=== PATIENT | female | born 1960 | race Caucasian/White ===

== ENCOUNTER 2021-05-26 01:01 | Inpatient (IN) | payer BC ==
[2021-05-26] MEDS: Dextrose 5%-Lactated Ringers 1,000 ML IV SCH ×3 (05:44→22:28)
[2021-05-26] MEDS ORDERED: fentaNYL/Normal Saline 600 MCG/30 ML PCA Vial IV PRN (06:00)
[2021-05-26] MEDS ORDERED: Naloxone 0.4 MG/ML SDV IV PRN (06:00)
[2021-05-26] MEDS ORDERED: Ondansetron 4 MG/2 ML SDV IVPUSH ONE (06:49)
--- NOTE | 2021-05-26 08:23 | PCM.HP.2 ---
H&P History of Present Illness - General Date of Service: 05/26/21 Admit Problem/Dx: Admission Diagnosis/Problem Admission Diagnosis/Problem Small bowel obstruction Source of Information: Patient History Limitations: Reports: No Limitations - History of Present Illness Initial Comments - Free Text/Narative: Marcela states she has had abdominal pain on and off since 04/16/2021 until yesterday. Reports pain as continuous, burning and in mid abdomen. CT shows a Small bowel intussusception near an area of postoperative change in the left abdomen and fatty enlarged liver. 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 Reports pain on a pain scale of 8/10. Denies any nausea, vomiting, diarrhea or constipation. Last BM was yesterday and she states she had 4 normal BMs. History of RNY Gastric Bypass Surgery in 2004 at [place], [place] [employer] Weight was about 300 lbs. Does not remember her lowest weight. Per report she is taking all of her vitamins and cannot remember what her prescription medications are. Transferred from [place], [place] via air ambulance Abdomen Pain Score (Numeric/FACES): 6 - Related Data Allergies/Adverse Reactions: Allergies Allergy/AdvReac Type Severity Reaction Status Date / Time hydrocodone Allergy Mild Other Verified 05/26/21 05:20 morphine Allergy Mild Other Verified 05/26/21 05:20 quetiapine [From Seroquel] Allergy Mild Other Verified 05/26/21 05:20 sulfa antibiotics Allergy Other Uncoded 05/26/21 05:20 Past Medical History HEENT History: Reports: Sinusitis Cardiovascular History: Reports: Heart Murmur Gastrointestinal History: Reports: Bowel Obstruction, Diverticulosis, GERD Genitourinary History: Reports: Other (See Below) Other Genitourinary History: Tilted bladder [employer] History: Reports: Psychiatric History: Reports: Anxiety, Depression, Panic Attack, Suicidal Ideation Other Psychiatric History: Switched meds and those made pt suisidal roughly 1 month ago, once discontinued no issues. - Infectious Disease History Infectious Disease History: Reports: MRSA - Past Surgical History HEENT Surgical History: Reports: None Cardiovascular Surgical History: Reports: None Respiratory Surgical History: Reports: None GI Surgical History: Reports: Bariatric Procedure, Hernia, Abdominal Neurological Surgical History: Reports: None Social & Family History - Family History Family Medical History: No Pertinent Family History - Tobacco Use Tobacco Use Status *Q: Current Every Day Tobacco User Years of Tobacco use: 40 Packs/Tins Daily: 1 Second Hand Smoke Exposure: Yes - Caffeine Use Caffeine Use: Reports: Coffee Caffeine Use Comment: occasionally - Recreational Drug Use Recreational Drug Use: Yes Drug Use in Last 12 Months: Yes Recreational Drug Type: Reports: Marijuana/Hashish Other Recreational Drug Type: Smoked medical marijuana almost daily until 2 weeks ago then has only had recreational marijuana twice since then. Recreational Drug Use Frequency: Daily H&P Review of Systems - Review of Systems: Review Of Systems: See Below General: Reports: No Symptoms HEENT: Reports: No Symptoms Pulmonary: Reports: No Symptoms Cardiovascular: Reports: No Symptoms Gastrointestinal: Reports: Abdominal Pain, Constipation, Diarrhea, Decreased Appetite Genitourinary: Reports: No Symptoms Musculoskeletal: Reports: No Symptoms Skin: Reports: No Symptoms Neurological: Reports: No Symptoms Hematologic/Lymphatic: Reports: No Symptoms Immunologic: Reports: No Symptoms Exam - Exam Exam: See Below - Vital Signs Vital Signs: Last Vital Signs Temp 98 F 05/26/21 06:58 Pulse 54 L 05/26/21 06:58 Resp 16 05/26/21 06:58 BP 158/76 H 05/26/21 06:58 Pulse Ox 95 05/26/21 06:58 Weight: 142 lb 12.8 oz - Exam Quality Assessment: DVT Prophylaxis General: Alert, Oriented, Cooperative HEENT: PERRLA, Conjunctiva Clear Neck: Supple, Trachea Midline Lungs: Clear to Auscultation, Normal Respiratory Effort Cardiovascular: Regular Rate, Regular Rhythm GI/Abdominal Exam: Normal Bowel Sounds, Soft, Tender (in all 4 quadrants) (Female) Exam: Deferred Rectal (Female) Exam: Deferred Back Exam: Normal Inspection, Full Range of Motion Extremities: Normal Inspection, Normal Range of Motion, No Pedal Edema Skin: Warm, Dry, Intact Neurological: Cranial Nerves Intact, Reflexes Equal Bilateral Neuro Extensive - Mental Status: Alert, Oriented x3, Normal Mood/Affect Neuro Extensive - Motor, Sensory, Reflexes: CN II-XII Intact, Normal Gait, Normal Reflexes Psychiatric: Alert, Normal Affect, Normal Mood - Patient Data Lab Results Last 24 hrs: Laboratory Results - last 24 hr 05/26/21 05/26/21 05/26/21 Range/Units 05:22 06:46 06:46 WBC 8.0 (4.5-11.0) K/uL RBC 4.42 (3.30-5.50) M/uL Hgb 13.6 (12.0-15.0) g/dL Hct 41.3 (36.0-48.0) % MCV 93 (80-98) fL MCH 31 (27-31) pg MCHC 33 (32-36) % Plt Count 298 (150-400) K/uL Sodium 143 (140-148) mmol/L Potassium 3.5 L (3.6-5.2) mmol/L Chloride 106 (100-108) mmol/L Carbon Dioxide 28 (21-32) mmol/L Anion Gap 12.5 (5.0-14.0) mmol/L BUN 16 (7-18) mg/dL Creatinine 0.8 (0.6-1.0) mg/dL Est Cr Clr Drug Dosing 69.58 mL/min Estimated GFR (MDRD) > 60 (>60) Glucose 103 (74-106) mg/dL Calcium 8.6 (8.5-10.1) mg/dL Phosphorus 3.3 (2.5-4.9) mg/dL Magnesium 1.9 (1.8-2.4) mg/dL Ferritin (8-388) ng/ml Total Bilirubin 0.3 (0.2-1.0) mg/dL AST 15 (15-37) U/L ALT 23 (12-78) U/L Alkaline Phosphatase 52 (46-116) U/L Total Protein 6.0 L (6.4-8.2) g/dL Albumin 3.4 (3.4-5.0) g/dL Globulin 2.6 (2.3-3.5) g/dL Albumin/Globulin Ratio 1.3 (1.2-2.2) Vitamin B12 (193-986) pg/ml 05/26/21 05/26/21 Range/Units 06:46 06:46 WBC (4.5-11.0) K/uL RBC (3.30-5.50) M/uL Hgb (12.0-15.0) g/dL Hct (36.0-48.0) % MCV (80-98) fL MCH (27-31) pg MCHC (32-36) % Plt Count (150-400) K/uL Sodium (140-148) mmol/L Potassium (3.6-5.2) mmol/L Chloride (100-108) mmol/L Carbon Dioxide (21-32) mmol/L Anion Gap (5.0-14.0) mmol/L BUN (7-18) mg/dL Creatinine (0.6-1.0) mg/dL Est Cr Clr Drug Dosing mL/min Estimated GFR (MDRD) (>60) Glucose (74-106) mg/dL Calcium (8.5-10.1) mg/dL Phosphorus (2.5-4.9) mg/dL Magnesium (1.8-2.4) mg/dL Ferritin 234 (8-388) ng/ml Total Bilirubin (0.2-1.0) mg/dL AST (15-37) U/L ALT (12-78) U/L Alkaline Phosphatase (46-116) U/L Total Protein (6.4-8.2) g/dL Albumin (3.4-5.0) g/dL Globulin (2.3-3.5) g/dL Albumin/Globulin Ratio (1.2-2.2) Vitamin B12 797 (193-986) pg/ml Result Diagrams: 05/26/21 05:22 05/26/21 06:46 Sepsis Event Note - Evaluation Sepsis Screening Result: No Definite Risk - Focused Exam Vital Signs: Vital Signs Temp Pulse Resp BP Pulse Ox 05/26/21 06:58 98 F 54 L 16 158/76 H 95 05/26/21 03:27 97.6 F 59 L 17 130/66 98 - Problem List (1) Intussusception intestine SNOMED Code(s): 26389707 ICD Code: K56.1 - INTUSSUSCEPTION Status: Acute Current Visit: Yes Problem List Initiated/Reviewed/Updated: Yes Orders Last 24hrs: Active Orders 24 hr Category Date Time Status Admission Diagnosis [ADT] Routine ADT 05/26/21 03:14 Ordered Admission Status [Patient Status] [ADT] Routine ADT 05/26/21 03:14 Active Communication Order [RC] ASDIRECTED Care 05/26/21 07:47 Active Vital Signs [RC] Q4H Care 05/26/21 05:22 Active NPO [Nothing Per Oral Diet] [DIET] Diet 05/26/21 Breakfast Active UGI w Small Bowel wo Air [CR] Routine Exams 05/26/21 07:42 Ordered COPPER, SERUM OR PLASMA Stat Lab 05/26/21 06:46 Received FOLIC ACID [CHEM] Routine Lab 05/26/21 06:46 Received VITAMIN A, SERUM Stat Lab 05/26/21 06:46 Received VITAMIN B1 (THIAMINE), BLOOD Stat Lab 05/26/21 06:46 Received ZINC, PLASMA OR SERUM Stat Lab 05/26/21 06:46 Received Dextrose 5%-Lactated Ringers 1,000 ml Med 05/26/21 05:30 Active IV ASDIRECTED Naloxone [Narcan] Med 05/26/21 06:00 Active 0.1 mg IV ASDIRECTED PRN fentaNYL/Normal Saline [fentaNYL in NS 20 MCG/ML 30 ML Med 05/26/21 06:00 Active ROLL FORMING MACHINE SET UP MECHANIC] 0 mcg IV ASDIRECTED PRN SCD [Sequential Compression Device] [OM.PC] Routine Oth 05/26/21 05:52 Ordered Medication Orders Fentanyl Citrate (Fentanyl/Normal Saline 600 Mcg/30 Ml Candy Starch Mold Printer Vial) 0 mcg IV ASDIRECTED PRN; Protocol PRN Reason: Pain Dextrose/Lactated Ringer's (Dextrose 5%-Lactated Ringers) 1,000 mls @ 125 mls/hr IV ASDIRECTED CLYDE Last Admin: 05/26/21 05:44 Dose: 125 mls/hr Documented by: [id number] Naloxone HCl (Naloxone 0.4 Mg/Ml Sdv) 0.1 mg IV ASDIRECTED PRN PRN Reason: decreased respiratory rate Assessment: Small Bowel Obstruction SP RNY Gastric Bypass Surgery Plan: UGI with Small Bowel Follow Through with water soluable contast - today 05/26/2021 Call Curry Byers MD with results. Clear liquid diet. Admission: 3 3 nights and 4 days. Theresa Covarrubias 05/26/2021
[2021-05-26] MEDS ORDERED: Iopamidol 612 MG/ML 50 ML SDV PO ONE (09:55)
--- NOTE | 2021-05-26 11:40 | CR ---
UGI w Small Bowel wo Air CLINICAL HISTORY: Abdominal pain, history of bariatric surgery FINDINGS: Patient swallowed water-soluble contrast without significant difficulty. There is some mild smooth narrowing just above the GE junction. There is contrast passing through the gastric remanent into the Sandro loop. There is some mucosal prominence in the gastric remanent in the proximal jejunum which may represent some inflammatory change. There is also contrast passing into the excluded portion of the stomach and eventually the duodenum. SMALL BOWEL FOLLOW-THROUGH: Sequential images the abdomen are obtained following barium meal. Contrast is seen to flow through the duodenal sweep as well as the Sandro loop. Intestinal configuration otherwise has a normal configuration and mucosal pattern. Contrast is seen in the cecum at 20 minutes. IMPRESSION: Mild smooth narrowing at the distal esophagus may represents mild stricture formation There is some mucosal prominence in the gastric remanent which may represent some mucosal inflammatory changes Filling of the excluded portion the stomach consistent with fistula Otherwise normal small bowel follow-through
[2021-05-26] MEDS: LORazepam 1 MG Tab PO PRN ×2 (12:40→21:41)
[2021-05-26] MEDS: hydrOXYzine HCl 25 MG Tab PO SCH ×2 (12:40→21:03)
[2021-05-26] MEDS: Pantoprazole 40 MG Vial IVPUSH SCH (16:28)
[2021-05-26] MEDS: Potassium Phos in 0.9 % NaCl 15 MMOL in Premix Bag 1 BAG IV SCH ×6 (16:28→22:53)
[2021-05-27] MEDS ORDERED: Ondansetron 4 MG/2 ML SDV IVPUSH ONE (03:29)
[2021-05-27] MEDS ORDERED: diphenhydrAMINE 50 MG/ML SDV IVPUSH ONE (07:19)
--- NOTE | 2021-05-27 08:04 | PN ---
DATE OF SERVICE: 05/27/2021 Marcela is n.p.o. she will be going back to surgery. Case to follow. She has been running PVCs, bigeminy and trigeminy. Has had tele on and had one BM yesterday. Has received Zofran during the night for nausea. She does report itching and requesting something for that. She normally takes Atarax. Vital signs otherwise have been stable. REVIEW OF SYSTEMS: Remainder of review of systems negative for any pertinent positives and negatives. OBJECTIVE: Marcela is a pleasant 60-year-old female. She is alert and orientated. TPR 98.2, 70, 18, and blood pressure 123/98. HEENT: Negative. NECK: Supple. HEART: Regular rate and rhythm right now. No irregularity noted on auscultation. LUNGS: Clear to auscultation. ABDOMEN: Generalized tenderness in all 4 quadrants. EXTREMITIES: Without peripheral edema. NEURO: Intact. PSYCHIATRIC: Mood and affect appropriate. ASSESSMENT: Partial small bowel obstruction. PLAN: Remain n.p.o. Consent is signed. Orders will be written after postoperative procedure. Rx, Benadryl 50 mg IV 1 time to be given for itching. Theresa Muniz PA-C /[id number]
[2021-05-27] MEDS: Dextrose 5%-Lactated Ringers 1,000 ML IV SCH (08:35)
[2021-05-27] MEDS: hydrOXYzine HCl 25 MG Tab PO SCH (08:54)
[2021-05-27] MEDS ORDERED: Acetaminophen 500 MG Tab PO ONE (09:00)
[2021-05-27] MEDS ORDERED: Ropivacaine 32 ML, dexAMETHasone 8 MG, EPINEPHrine 0.4 MG, Sodium Chloride 0.9% 45.6 ML NERVRT SCH ×4 (10:00)
[2021-05-27] MEDS ORDERED: Ketamine 500 MG/5 ML MDV IV SCH (10:00)
[2021-05-27] MEDS ORDERED: cefOXitin 2 GM in Sodium Chloride 0.9% 50 ML IV ONE (10:00)
[2021-05-27] MEDS ORDERED: Ketamine 18 MG in Sodium Chloride 0.9% 19.82 ML IV SCH (10:00)
[2021-05-27] MEDS ORDERED: Meropenem 500 MG SDV ONE (10:40)
[2021-05-27] MEDS ORDERED: Lidocaine 1% with EPINEPHrine 1:100,000 50 ML MDV ONE (10:41)
[2021-05-27] MEDS ORDERED: Bupivacaine 0.5% 50 ML MDV ONE (10:41)
[2021-05-27] MEDS ORDERED: fentaNYL 250 MCG/5 ML SDV ONE ×2 (11:21→12:16)
[2021-05-27] MEDS ORDERED: Rocuronium 50 MG/5 ML Vial ONE ×2 (11:22→13:09)
[2021-05-27] MEDS ORDERED: Ondansetron 4 MG/2 ML SDV ONE ×2 (11:22→15:52)
[2021-05-27] MEDS ORDERED: Neostigmine Methylsulfate 1 MG/ML 5 ML Syringe ONE (11:22)
[2021-05-27] MEDS ORDERED: Propofol 200 MG/20 ML SDV ONE (11:22)
[2021-05-27] MEDS ORDERED: Succinylcholine 200 MG/10 ML MDV ONE (11:22)
[2021-05-27] MEDS ORDERED: Dexamethasone 4 MG/ML SDV ONE (11:22)
[2021-05-27] MEDS ORDERED: Glycopyrrolate 0.2 MG/ML 5 ML MDV ONE (11:22)
[2021-05-27] MEDS ORDERED: Lactated Ringers 1,000 ML ONE (12:53)
[2021-05-27] MEDS ORDERED: hydrOXYzine HCL 100 MG/2 ML SDV IM ONE ×2 (14:27→15:45)
--- NOTE | 2021-05-27 14:44 | PCM.EKG ---
#1 Interpretation EKG Date: 05/26/21 Time: 12:46 Rhythm: NSR Rate (Beats/Min): 71 [place]: Normal P-Wave: Present QRS: Normal ST-T: Normal QT: Normal AL/PQ Interval: normal Comparison: NA - No Prior EKG EKG Interpretation Comments: occasional PVC
[2021-05-27] MEDS ORDERED: Naloxone 0.4 MG/ML SDV IV PRN (15:38)
[2021-05-27] MEDS: Ondansetron 4 MG/2 ML SDV IVPUSH PRN ×2 (15:54→21:19)
[2021-05-27] MEDS: Pantoprazole 40 MG Vial IVPUSH SCH (15:58)
[2021-05-27] MEDS ORDERED: Acetaminophen 500 MG Tab PO PRN (16:00)
[2021-05-27] MEDS ORDERED: Albuterol/Ipratropium 3.0-0.5 MG/3 ML Neb Soln INH PRN (16:00)
[2021-05-27] MEDS ORDERED: hydrOXYzine HCL 100 MG/2 ML SDV IM PRN (16:00)
[2021-05-27] MEDS ORDERED: diphenhydrAMINE 50 MG/ML SDV IVPUSH PRN (16:00)
[2021-05-27] MEDS ORDERED: MVI, Adult with Vitamin K 10 ML, Thiamine 200 MG, Zinc/Copper/Manganese/Selenium 1 ML i... IV SCH ×4 (16:00)
[2021-05-27] MEDS ORDERED: Labetalol 20 MG/4 ML Syringe IVPUSH PRN (16:00)
[2021-05-27] MEDS ORDERED: Scopolamine 1.5 MG Transdermal Patch TOP SCH (16:00)
[2021-05-27] MEDS: Acetaminophen 500 MG Tab PO SCH ×3 (16:07→23:17)
[2021-05-27] MEDS: fentaNYL/Normal Saline 600 MCG/30 ML PCA Vial IV PRN (16:07)
[2021-05-27] MEDS: Cyclobenzaprine 10 MG Tab PO PRN (17:17)
[2021-05-27] MEDS: cefOXitin 2 GM in Sodium Chloride 0.9% 50 ML IV SCH ×2 (17:22→22:58)
[2021-05-27] MEDS: LORazepam 2 MG/ML SDV IVPUSH PRN (18:07)
[2021-05-27] MEDS: Albuterol/Ipratropium 3.0-0.5 MG/3 ML Neb Soln INH SCH (21:21)
[2021-05-27] MEDS: Heparin Sodium 5,000 Units/ML Vial SUBCUT SCH (21:26)
[2021-05-28] MEDS: Dextrose 5%-Lactated Ringers 1,000 ML IV SCH ×2 (00:06→06:19)
[2021-05-28] MEDS ORDERED: Iopamidol 612 MG/ML 50 ML SDV PO STA (01:56)
[2021-05-28] MEDS: Cyclobenzaprine 10 MG Tab PO PRN ×2 (01:56→21:26)
[2021-05-28] MEDS: cefOXitin 2 GM in Sodium Chloride 0.9% 50 ML IV SCH ×4 (04:44→22:18)
[2021-05-28] MEDS: Albuterol/Ipratropium 3.0-0.5 MG/3 ML Neb Soln INH SCH ×4 (07:24→21:26)
[2021-05-28] MEDS: fentaNYL/Normal Saline 600 MCG/30 ML PCA Vial IV PRN (07:51)
[2021-05-28] MEDS ORDERED: Potassium Chloride 20 MEQ in Premix Bag 1 BAG IV ONE (07:52)
[2021-05-28] MEDS ORDERED: Potassium Chloride Riders 40 MEQ in Premix Bag 1 BAG IV ONE (07:52)
[2021-05-28] MEDS ORDERED: Dextrose 5%-Lactated Ringers 1,000 ML IV SCH (08:00)
[2021-05-28] MEDS ORDERED: Magnesium Sulfate/Water 2 GM/50 ML BAG IV SCH (08:00)
[2021-05-28] MEDS: LORazepam 2 MG/ML SDV IVPUSH PRN ×2 (08:39→22:31)
[2021-05-28] MEDS: Metoclopramide 10 MG/2 ML SDV IVPUSH PRN (08:44)
[2021-05-28] MEDS: Acetaminophen 500 MG Tab PO SCH ×3 (08:47→23:35)
[2021-05-28] MEDS: Celecoxib 200 MG Cap PO SCH ×2 (08:48→20:54)
[2021-05-28] MEDS: Heparin Sodium 5,000 Units/ML Vial SUBCUT SCH ×2 (08:48→20:54)
[2021-05-28] MEDS: SCOPOLAMINE PATCH CHECK TOP SCH (08:50)
--- NOTE | 2021-05-28 08:58 | PN ---
DATE OF SERVICE: 05/28/2021 SUBJECTIVE: Marcela is postop day #1. Her upper GI was normal. Labs this morning; potassium 3.4, magnesium 1.3. BNP is 1521. She reports pain and has been using her MEDICAL WRITER and does rest comfortably, but then wakes up and is playing catch up with her pain has been getting Vistaril IM. REVIEW OF SYSTEMS: Remainder of review of systems negative for any pertinent positives and negatives. OBJECTIVE: GENERAL: Marcela is a pleasant 60-year-old female. VITAL SIGNS: TPR is 99.1, 75, 18. Blood pressure 177/70. Oral intake 2862, output 4525. RYNE drain 1 and 2 put out 43 and 65 respectively of a light pink drainage. HEENT: Negative. NECK: Supple. HEART: Regular rate and rhythm. LUNGS: Clear. ABDOMEN: Dressing dry and intact. RYNE drain is as above. EXTREMITIES: Without peripheral edema. ASSESSMENT: 1. Exploratory laparotomy with: a. Total gastrectomy with Sandro-en-Y reconstruction. b. Small bowel resection. c. Small bowel strictureplasty. d. Takedown gastrostomy. e. Repair of incarcerated incisional hernia. f. Removal of intraperitoneal foreign body with suture granulation. g. Placement of Interceed mesh x2. h. Intraoperative esophagogastroduodenoscopy. POSTOPERATIVE DIAGNOSES: 1. Partial small bowel obstruction at the jejunojejunostomy secondary to stricture and intussusception. 2. 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 3. Gastrectomy. 4. Independent foreign body associated with suture granulation. 5. Incarcerated incisional hernia. Date of procedure: 05/27/2021. Surgeon: Curry Byers MD. PLAN: 1. Magnesium 2 g IV q.6 hours x72 hours. 2. Calcium 60 mEq IV in 3 divided doses with lidocaine. 3. Step 2 gastric bypass diet without cereal. 4. Lasix 20 mg IV b.i.d. 5. Decrease IV to 100 mL per hour. 6. Check CBC, CMP, phos, and BNP in a.m. 7. Leave Edward catheter in for accurate intake and output. 8. Incentive spirometer 10 times every hour while awake. Continue ambulation. 9. We will evaluate p.r.n. or in a.m. Theresa Muniz PA-C /[id number]
[2021-05-28] MEDS: Magnesium Sulfate/Water 2 GM in Premix Bag 1 BAG IV SCH ×3 (09:01→21:28)
--- NOTE | 2021-05-28 09:37 | CR ---
UGI Limited HISTORY: Postbariatric surgery/revision FINDINGS: There is contrast in the excluded portion of the stomach from previous upper GI.Patient swallowed water-soluble contrast. Upright views of the abdomen show no evidence of obstruction or extravasation. There are surgical drains in the upper abdomen. IMPRESSION: Status post bariatric surgery/revision No extravasation or obstruction seen
[2021-05-28] MEDS: Furosemide 20 MG/2 ML VIAL IVPUSH SCH ×2 (10:36→16:13)
[2021-05-28] MEDS: Potassium Chloride 20 MEQ, Lidocaine 1% 2 ML in Sodium Chloride 0.9% 100 ML IV SCH ×3 (10:50→15:14)
[2021-05-28] MEDS: Pantoprazole 40 MG Vial IVPUSH SCH (14:23)
[2021-05-28] MEDS ORDERED: MVI, Adult with Vitamin K 10 ML, Thiamine 200 MG, Zinc/Copper/Manganese/Selenium 1 ML i... IV SCH ×4 (16:00)
[2021-05-29] MEDS: Magnesium Sulfate/Water 2 GM in Premix Bag 1 BAG IV SCH ×4 (03:41→21:55)
[2021-05-29] MEDS: cefOXitin 2 GM in Sodium Chloride 0.9% 50 ML IV SCH ×2 (04:31→10:34)
[2021-05-29] MEDS: Ondansetron 4 MG/2 ML SDV IVPUSH PRN ×2 (04:34→10:41)
[2021-05-29] MEDS: Albuterol/Ipratropium 3.0-0.5 MG/3 ML Neb Soln INH SCH ×4 (07:00→20:30)
[2021-05-29] MEDS: Acetaminophen 500 MG Tab PO SCH ×4 (08:26→23:09)
[2021-05-29] MEDS: Heparin Sodium 5,000 Units/ML Vial SUBCUT SCH ×2 (08:26→20:30)
[2021-05-29] MEDS: Celecoxib 200 MG Cap PO SCH ×2 (08:26→20:30)
[2021-05-29] MEDS: SCOPOLAMINE PATCH CHECK TOP SCH (08:27)
[2021-05-29] MEDS: Metoclopramide 10 MG/2 ML SDV IVPUSH PRN ×3 (08:37→22:32)
[2021-05-29] MEDS ORDERED: Cyanocobalamin (Vitamin B12) 1,000 MCG/ML SDV IM ONE (09:00)
[2021-05-29] MEDS ORDERED: Furosemide 20 MG/2 ML VIAL IV ONE (10:00)
[2021-05-29] MEDS: Bisacodyl 5 MG Tab PO SCH ×2 (10:46→20:30)
[2021-05-29] MEDS: Docusate Sodium 100 MG Cap PO SCH ×2 (10:46→20:30)
[2021-05-29] MEDS: fentaNYL/Normal Saline 600 MCG/30 ML PCA Vial IV PRN (11:24)
[2021-05-29] MEDS: Potassium Phos in 0.9 % NaCl 15 MMOL in Premix Bag 1 BAG IV SCH ×8 (11:27→21:15)
--- NOTE | 2021-05-29 11:34 | PN ---
DATE OF SERVICE: 05/29/2021 The patient has had 1 elevated temp. This came down with increased activity. We will need to continue to maximize activity and work with pulmonary toilet in this case. Otherwise, her BNP has come down. Her urine output has been quite high. We will discontinue the Edward catheter. We will give her a dose of Lasix today. Potassium and phosphate are marginally low, those will be supplemented. We will begin some bowel stimulation today including the step-2 diet. Curry Byers MD Job #: [id number]
--- NOTE | 2021-05-29 12:40 | OR ---
DATE OF PROCEDURE: 05/27/2021 SURGEON: Curry Byers MD PREOPERATIVE DIAGNOSES: 1. Partial small bowel obstruction at jejunojejunostomy. 2. Large gastrogastric fistula. POSTOPERATIVE DIAGNOSES: 1. Partial small bowel obstruction at jejunojejunostomy secondary to small bowel stricture and recurrent intussusception. 2. Large gastrogastric fistula associated with intense inflammation of envteubj-yx-mde stomach. 3. Pre-existing gastrostomy. 4. Intraperitoneal foreign body associated with suture granuloma. 5. Incarcerated incisional (trocar site) hernia. OPERATIVE PROCEDURES: Exploratory laparotomy with: 1. Distal gastrectomy with Sandro-en-Y reconstruction (74760). 2. Small bowel resection (03996). 3. Small bowel strictureplasty (43301). 4. Takedown of gastrostomy (44580). 5. Repair of incarcerated incisional hernia (06697). 6. Removal of intraperitoneal foreign body associated with suture granuloma (55839). 7. Placement of Interceed mesh x2 (36463). 8. Intraoperative esophagogastroduodenoscopy. ANESTHESIA: General. DIGITAL MARKETING APPRENTICE: Theresa Muniz PA-C INDICATIONS FOR PROCEDURE: This is a 60-year-old female presenting with a picture of a small bowel obstruction at the jejunojejunostomy. On CT scan, this appears to be related to an intussusception at that level. The patient also by history noted to have a gastrogastric fistula status post previous Sandro-en-Y gastric bypass. An upper GI x-ray was obtained yesterday, which did confirm the very large fistula with virtually all of the ingested contrast going into the previously bypassed stomach. Plan is to proceed with exploratory laparotomy with small bowel resection and reconstruction of the jejunojejunostomy along with closure of the gastrogastric fistula even by means of simple stapling across the fistula site versus resectional procedure. Potential risks of the procedure including bleeding, infection, injury to underlying viscera, GI tract closure, as well as possibility of cardiopulmonary, septic, or hemorrhagic complications leading to were discussed, and the patient wishes to proceed. DETAILS OF PROCEDURE: The patient was taken to the operating room. After general endotracheal anesthesia was induced, a Edward catheter was inserted and the abdomen prepped and draped. Incision from the xiphoid to the umbilicus was then made and carried down from the full-thickness abdominal wall. Upon entering the peritoneal cavity, there were some scattered adhesions, which were taken down. Bilateral transverse abdominis plane blocks were placed. Initially, small bowel was examined. It was noted to have area of intussusception at the jejunojejunostomy with this area being markedly edematous and dilated. In addition to this, there appeared to be an element of stricturing at the anastomosis between the biliopancreatic limb and immediately in the outlet of the jejunojejunostomy going into the common limb. Initial dissection in the area of the stomach noted ulcerated antecolic Sandro limb. This was located below a very large gastric pouch with the gastric pouch inferiorly being essentially at the incisura angularis. This area was intensely inflamed and quite hard related to probable previous ulceration, and by history, the patient apparently had a perforation at that site at one point as well. There was a pre-existing gastrostomy, which was at this point taken down with surgical edgar and this specimen delivered from the field. To confirm the anatomy, at this point, an upper GI endoscope was passed orally through the length of the esophagus into the stomach. The gastrojejunostomy was then identified as it was a very large fistula. The fistula went into the bypassed portion of the stomach suddenly entering at a point very close to or within the proximal antrum. The proximal stomach was markedly chronically inflamed with chronic gastritis present. Initially, the area along the edge of the gastric pouch was resected. At this point, however, it was felt that essentially a total gastrectomy should be performed with reconstruction with the pre- existing Sandro limb as the division of the area of fistula formation would leave essentially retained antrum and the proximal stomach was very thickened and chronically inflamed. Given this, then an opening in the gastric pouch was then made and an anvil of a 28 mm EEA stapler was passed up into the area of the esophagogastric junction, and just below that point of the anvil, the area of the esophagogastric junction was divided with ESTEBAN black loads. The duodenum was then divided at a point just distal to the pylorus and the remaining vascular attachments to the stomach were divided with vascular and mesenteric edgar. The point where the Sandro limb came into the gastrojejunostomy was also then divided with the ESTEBAN stapler as was the underlying mesentery and the specimen was then delivered from the field. Attention was then taken to the small bowel. The Sandro limb was at this point detached from the point where it entered the jejunojejunostomy. Small bowel portion of this bowel was then resected leaving the patient a Sandro limb with a length of around 80 cm. The area of stricturing at the jejunojejunostomy at the outlet was entered into the common limb, was then treated by means of a strictureplasty. The antimesenteric border of the bowel on each side of the anastomosis was opened, and the ESTEBAN stapler 60 mm followed by a 30 mm stapler was inserted, and the area of stricturing above that was then excised by means of a ESTEBAN black load followed by a purple load. The angles of anastomosis were reinforced with some 3- 0 Vicryl stitch. At the end of this case, there was no mesenteric defect. The gastrojejunostomy was then accomplished, this being essentially again at the esophagogastric junction. With this being essentially a total gastrectomy, the latter being performed to minimize any persistent parietal cell mass, which might lead to some ulceration with the patient having history of smoking. The divided end of the Sandro limb was then opened and the main body of the EEA stapler passed several centimeters into the lumen of small bowel, brought up the anvil, which at that point then pulled through the divided esophagogastric junction, and connected to the main part of the stapler at the anastomosis between the Sandro limb and the esophagogastric junction was then accomplished with firing of the stapler. Upon removal of the stapler, double donuts of mucosa were noted within it. Small bowel was closed off with a vascular staple line. Gastric anastomosis was then reinforced with a running 3-0 Vicryl stitch along with fibrin sealant. The fibrin sealant was also then used to reinforce the small bowel at the point of strictureplasty. Finally, the GI tract continuity was reestablished with anastomosis between the distal end of the Sandro limb and the small bowel roughly 20 cm distal to the anastomosis was then revised by means of the strictureplasty. This was with internal firing of 60 mm stapler followed by a 30 mm stapler, and the common opening closed transversely with the same stapler. Angles anastomosed were then reinforced with some 3-0 Vicryl stitch as was the mesenteric defect. At this point, the duodenum stump was oversewn with seromuscular 3-0 Vicryl stitch and then reinforced with fibrin sealant as well. Through the entrance in the abdomen, 2 additional findings were noted incarcerated incisional hernia at the trocar site located in mid portion of the upper midline incision. This contained roughly a grape-sized area of fatty tissue within the hernia site. There was also an intense area of inflammation near the inferior aspect of the incision on the intraperitoneal surface, which appeared to be peritoneal implant consisting of a suture granuloma. This was also then resected and this measured around 1.5 cm in diameter. At this point, no further problems noted. The second small bowel anastomosis was then reinforced with fibrin sealant as was the duodenal stump and was irrigated with meropenem- containing saline solution. Two Kirk-Talbert drains were placed, one on the right, one on the left side. The right-sided one came across the area of the duodenal stump and from there up toward the proximal anastomosis and the second RYNE drain on the left side placed up against the anastomosis in the Sandro limb and the esophagogastric junction and from there into the splenic fossa. The Interceed mesh x2 was then placed underneath the incision and then down toward the pelvis to limit recurrent adhesion formation, and the midline fascia then approximated with #2 Vicryl stitch, subcutaneous tissue with 2 layers of 3-0 Vicryl stitch, and the skin with edgar. Two additional findings in this case were that the patient was felt to have a significant hiatal hernia present based on the upper GI x-ray. This, however, was not present to any extent, and the patient was noted to have a fairly large left inguinal hernia which at this point was nonincarcerated and would likely be best repaired at a later point in time. Physician's fundraising assistant, Theresa Muniz, played an essential role in assisting in this case helping to position the patient, retract structures as needed, as well as suturing and cutting sutures when indicated. Her presence improved patient safety and decreased operative time. Curry Byers MD Job #: [id number]
[2021-05-29] MEDS: Pantoprazole 40 MG Tab.CR PO SCH (16:22)
[2021-05-29] MEDS: Dextrose 5%-Lactated Ringers 1,000 ML IV SCH (18:19)
[2021-05-29] MEDS: LORazepam 2 MG/ML SDV IVPUSH PRN (19:58)
[2021-05-29] MEDS: Cyclobenzaprine 10 MG Tab PO PRN (20:30)
[2021-05-29] MEDS: Ondansetron 4 MG Tab.DIS PO PRN (20:42)
[2021-05-30] MEDS: Ondansetron 4 MG Tab.DIS PO PRN ×2 (02:25→06:31)
[2021-05-30] MEDS: Magnesium Sulfate/Water 2 GM in Premix Bag 1 BAG IV SCH ×4 (03:35→22:34)
[2021-05-30] MEDS: Acetaminophen/HYDROcodone 325-5 MG Tab PO PRN ×5 (03:36→20:00)
[2021-05-30] MEDS: Metoclopramide 10 MG/2 ML SDV IVPUSH PRN ×2 (03:38→11:29)
[2021-05-30] MEDS: Albuterol/Ipratropium 3.0-0.5 MG/3 ML Neb Soln INH SCH ×4 (07:05→20:00)
[2021-05-30] MEDS: Acetaminophen 325 MG Tab PO SCH ×2 (07:38→16:03)
[2021-05-30] MEDS: Dextrose 5%-Lactated Ringers 1,000 ML IV SCH (09:37)
[2021-05-30] MEDS: Heparin Sodium 5,000 Units/ML Vial SUBCUT SCH ×2 (09:41→20:00)
[2021-05-30] MEDS: Docusate Sodium 100 MG Cap PO SCH ×2 (09:41→20:00)
[2021-05-30] MEDS: Bisacodyl 5 MG Tab PO SCH ×2 (09:41→20:00)
[2021-05-30] MEDS: Celecoxib 200 MG Cap PO SCH ×2 (09:41→20:00)
[2021-05-30] MEDS: Cyclobenzaprine 10 MG Tab PO PRN ×2 (09:51→19:57)
--- NOTE | 2021-05-30 13:31 | PN ---
DATE OF SERVICE: 05/30/2021 The patient has had a T-max of 99. Vital signs have otherwise been stable. The oral intake is recorded only at 330 mL and her BNP is fairly low back up the IV rate to 80 an hour or more of a maintenance rate. Otherwise, her labs looked good. White count is gradually coming down. We will let her shower today. She has been switched over to oral pain medication as her Fentanyl ROUTE RIDER ran out currently and switched over to hydrocodone/Tylenol receiving one of those every 4 hours p.r.n. plus additional 325 mg of Tylenol with each of those doses. We will have her get in the shower today, and otherwise maximize activity and work with pulmonary toilet. We will continue the bowel stimulation. Curry Byers MD Job #: [id number]
[2021-05-30] MEDS: Pantoprazole 40 MG Tab.CR PO SCH (16:04)
[2021-05-30] MEDS: LORazepam 2 MG/ML SDV IVPUSH PRN (19:57)
[2021-05-31] MEDS: Acetaminophen 325 MG Tab PO SCH ×4 (00:30→23:53)
[2021-05-31] MEDS: Acetaminophen/HYDROcodone 325-5 MG Tab PO PRN ×4 (01:24→23:44)
[2021-05-31] MEDS: Magnesium Sulfate/Water 2 GM in Premix Bag 1 BAG IV SCH ×2 (03:36)
[2021-05-31] MEDS: Albuterol/Ipratropium 3.0-0.5 MG/3 ML Neb Soln INH SCH ×4 (07:14→21:05)
[2021-05-31] MEDS ORDERED: Acetaminophen 325 MG Tab PO PRN (07:17)
[2021-05-31] MEDS ORDERED: Dextrose 5%-Lactated Ringers 1,000 ML IV SCH (07:17)
[2021-05-31] MEDS: Cyclobenzaprine 10 MG Tab PO PRN ×3 (07:37→22:30)
--- NOTE | 2021-05-31 08:04 | PN ---
DATE OF SERVICE: 05/31/2021 SUBJECTIVE: Marcela reports her pain is controlled. She has been up, ambulating. Oral intake 1975. Urine output is 1250. RYNE drain put out 55 and 135 respectively. She did have 1 bowel movement this a.m. Vital signs have been stable. Temperature max of 99.4. Has no other concerns or questions today. OBJECTIVE: GENERAL: Marcela is a 60-year-old female. She is alert and orientated. VITAL SIGNS: TPR on 05/30/2021 at 2243, 99.2; 72; 18; blood pressure 114/76. HEENT: Negative. NECK: Supple. HEART: Regular rate and rhythm. LUNGS: Clear. ABDOMEN: Dressings dry and intact. RYNE drain intact. EXTREMITIES: Without peripheral edema. ASSESSMENT: 1. Exploratory laparotomy. 2. Distal gastrectomy with Sandro-en-Y reconstruction. 3. Small-bowel resection. 4. Small bowel strictureplasty. 5. Takedown of gastrostomy. 6. Repair of incarcerated incisional hernia. 7. Removal of intraperitoneal foreign body associated with suture granuloma. 8. Placement of Interceed mesh. 9. Intraoperative esophagogastroduodenoscopy. POSTOPERATIVE DIAGNOSES: 1. Partial small bowel obstruction, jejunojejunostomy secondary to small bowel stricture and recurrent intussusception. 2. 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 3. Pre-existing gastrostomy. 4. Intraperitoneal foreign body associated with suture granuloma. 5. Incarcerated incisional trocar site hernia. Date of procedure: 05/27/2021. Surgeon: Curry Byers MD. PLAN: Change [place] prescription to [place] 5/325 mg one q.6 hours p.o. and to take with Tylenol 325 mg, and decrease IV to TKO. Plan discharge in a.m. Theresa Muniz PA-C /[id number]
[2021-05-31] MEDS: Bisacodyl 5 MG Tab PO SCH ×2 (09:15→21:05)
[2021-05-31] MEDS: Docusate Sodium 100 MG Cap PO SCH ×2 (09:15→21:05)
[2021-05-31] MEDS: Celecoxib 200 MG Cap PO SCH ×2 (09:15→21:06)
[2021-05-31] MEDS: Heparin Sodium 5,000 Units/ML Vial SUBCUT SCH ×2 (09:15→21:06)
[2021-05-31] MEDS: LORazepam 2 MG/ML SDV IVPUSH PRN (12:28)
[2021-05-31] MEDS: Pantoprazole 40 MG Tab.CR PO SCH (16:17)
[2021-06-01] MEDS: Acetaminophen/HYDROcodone 325-5 MG Tab PO PRN ×2 (05:25→11:24)
[2021-06-01] MEDS: Albuterol/Ipratropium 3.0-0.5 MG/3 ML Neb Soln INH SCH (07:13)
[2021-06-01] MEDS: Celecoxib 200 MG Cap PO SCH (07:59)
[2021-06-01] MEDS: Docusate Sodium 100 MG Cap PO SCH ×2 (07:59→08:03)
[2021-06-01] MEDS: Bisacodyl 5 MG Tab PO SCH ×2 (07:59→08:03)
[2021-06-01] MEDS: Acetaminophen 325 MG Tab PO SCH (07:59)
[2021-06-01] MEDS: Heparin Sodium 5,000 Units/ML Vial SUBCUT SCH (07:59)
--- NOTE | 2021-06-01 09:52 | DISCH ---
ADMISSION DIAGNOSES: Small bowel obstruction status post Sandro-en-Y gastric bypass surgery, unspecified surgical malabsorption, nicotine addiction, anxiety, depression, panic attacks, suicide ideation, and habitual marijuana use, both recreational and medical. DISCHARGE SUMMARY: Exploratory laparotomy with: 1. Distal gastrectomy with Sandro-en-Y reconstruction. 2. Small bowel resection. 3. Small bowel strictureplasty. 4. Takedown of gastrostomy. 5. Repair of incarcerated incisional hernia. 6. Removal of intraperitoneal foreign body associated with suture granuloma. Intraoperative esophagogastroduodenoscopy. POSTOPERATIVE DIAGNOSES: 1. Partial small bowel obstruction at jejunojejunostomy secondary to small bowel stricture and recurrent intussusception. 2. 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 3. Pre-existing gastrostomy. 4. Intraperitoneal foreign body associated with suture granuloma. 5. Incarcerated incisional (trocar site hernia). Date of procedure: 05/27/2021. Surgeon: Curry Byers MD. HISTORY: Marcela is a 60-year-old female presenting with a picture of small bowel obstruction at the jejunojejunostomy. A CT scan showed an intussusception at that level. 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 An upper GI did confirm a very large fistula, virtually all of the ingested contrast going into the previously bypassed stomach. The patient was transferred [facility] via air ambulance. After preoperative evaluation, discussion of possible risks and possible complications, she wished to proceed with surgical procedure. HOSPITAL COURSE: Marcela had her surgery on 05/27/2021. She had no operative complications. On postop day 1, upper GI was normal. Her pain was controlled with a [employer]ITION PROFESSIONAL. Potassium was 3.4 and this was replaced by IV potassium. Magnesium was 1.3 and this was replaced also by magnesium IV. On postop day 2, Marcela had a slightly elevated temperature, which came down after increased activity. BNP decreased. Urine output was good. Edward catheter was discontinued. She did have one dose of Lasix, and potassium phosphate was replaced, and was started on bowel stimulation. On postop day 3, temp max was 99. Vital signs were other otherwise stable. IV rate was decreased. Labs looked good. She was able to shower. Started on oral pain medication. On postop day 4, pain was controlled with oral pain medication. She was ambulating. Oral intake and output adequate and she did have a bowel movement. On postop day 5, 06/01/2021, Marcela was able to be discharged to home without any complications. PHYSICAL EXAMINATION: GENERAL: Marcela is a 60-year-old female. VITAL SIGNS: Height is 5 feet 6.5 inches, weight is 142 pounds. BMI is 22. TPR 97.5, 74, 16, blood pressure 138/58. HEENT: Negative. NECK: Supple. HEART: Regular rate and rhythm. LUNGS: Clear. ABDOMEN: Aquacel dressings on. Abdominal binder is on. EXTREMITIES: Without peripheral edema. DISPOSITION: Discharged to home. CONDITION: Stable and improving. FOLLOWUP APPOINTMENT: Theresa Muniz PA-C, on , 06/10/2021, at 12 p.m. HOME MEDICATIONS: Celebrex 200 mg p.o. b.i.d., #28; hydrocodone/acetaminophen 5/325 mg 1 q.6 hours p.r.n. pain, #18, written by Curry Byers MD. She is to resume home medications of Protonix 40 mg 1 tablet b.i.d., Zofran ODT 1 tablet sublingual q.8 hours p.r.n. nausea, Ativan 1 mg q.i.d. p.r.n. anxiety, hydroxyzine 1 tablet p.o. b.i.d., and B12, 1000 1 mL injected as directed. DIET: Step 2 gastric bypass diet without cereal for 2 weeks. She is to drink 8 to 10 glasses of water a day. ACTIVITY: No lifting greater than 10 pounds for 6 weeks. OTHER ACTIVITY: Walk 6 times daily inside your home. Driving: Do not drive for 1 week and while on narcotic pain medication. Shower/bathing: May shower. Keep operative site clean and dry. Wear abdominal binder for 6 weeks and then as tolerated. Notify provider if any fever, increased pain, swelling, redness, drainage, nausea, vomiting. SPECIAL INSTRUCTIONS: 1. Use incentive spirometer every hour while awake for 1 week. 2. Continue not to smoke. 3. Walk 3 minutes for every hour you are in the car on the way home. /[id number]
== END 2021-06-01 12:16 | disposition home or self-care (01) | DRG 220 ==
LOC: JP.MS 03:14
PROVIDERS: ADMIT Surgery; ATTEND Surgery
PROC: 0D160ZA Bypass Stomach to Jejunum, Open Approach (ICD-10-PCS; principal; 2021-05-27)
PROC: 0DB80ZZ Excision of Small Intestine, Open Approach (ICD-10-PCS; 2021-05-27)
PROC: 0DQ80ZZ Repair Small Intestine, Open Approach (ICD-10-PCS; 2021-05-27)
PROC: 0D960ZZ Drainage of Stomach, Open Approach (ICD-10-PCS; 2021-05-27)
PROC: 0WQF0ZZ Repair Abdominal Wall, Open Approach (ICD-10-PCS; 2021-05-27)
PROC: 3E0M05Z Introduction of Adhesion Barrier into Peritoneal Cavity, Open Approach (ICD-10-PCS; 2021-05-27)
PROC: 0DCW0ZZ Extirpation of Matter from Peritoneum, Open Approach (ICD-10-PCS; 2021-05-27)
DX: K95.89 Other complications of other bariatric procedure (principal); K56.609 Unspecified intestinal obstruction, unspecified as to partial versus complete obstruction; Y84.8 Other medical procedures as the cause of abnormal reaction of the patient, or of later complication, without mention of misadventure at the time of the procedure; K56.1 Intussusception; K31.6 Fistula of stomach and duodenum; K43.0 Incisional hernia with obstruction, without gangrene; K21.9 Gastro-esophageal reflux disease without esophagitis; K57.90 Diverticulosis of intestine, part unspecified, without perforation or abscess without bleeding; F17.210 Nicotine dependence, cigarettes, uncomplicated; F41.9 Anxiety disorder, unspecified; F32.A Depression, unspecified; Z93.1 Gastrostomy status; Z88.5 Allergy status to narcotic agent; Z88.2 Allergy status to sulfonamides; Z86.14 Personal history of Methicillin resistant Staphylococcus aureus infection; Z98.84 Bariatric surgery status
CPT/HCPCS: 36415; 74240; 74240-26; 74248; 80053; 82525; 82607; 82728; 82746; 83735; 83880; 84100; 84425; 84590; 84630; 85025; 85027; 93005; 94640; 94762; A9270-GY; C9113; J0171; J0330; J0694; J1100; J1200; J1644; J1940; J2060; J2185; J2405; J2704; J2710; J2765; J2795; J3010; J3410; J3411; J3420; J3475; J3480; J3490; J7120; J7121; J7620-GY; Q9967

== ENCOUNTER 2022-06-27 08:37 | Day surgery (SDC) | payer BC ==
[2022-06-27] MEDS ORDERED: Dextrose 5%-Lactated Ringers 1,000 ML IV SCH (09:30)
[2022-06-27] MEDS ORDERED: Midazolam 1 MG/ML 2 ML SDV ONE (11:28)
[2022-06-27] MEDS ORDERED: Propofol 200 MG/20 ML SDV ONE (11:29)
[2022-06-27] MEDS ORDERED: fentaNYL 50 MCG/ML SDV ONE (11:29)
[2022-06-27] MEDS ORDERED: Midazolam 1 MG/ML 2 ML SDV IVPUSH ONE (12:00)
== END 2022-06-27 14:09 | disposition home or self-care (01) ==
LOC: JP.SDS 08:37
PROVIDERS: ATTEND Surgery
DX: Z12.11 Encounter for screening for malignant neoplasm of colon (principal); K64.8 Other hemorrhoids; J44.9 Chronic obstructive pulmonary disease, unspecified; R73.03 Prediabetes; K21.9 Gastro-esophageal reflux disease without esophagitis; F32.A Depression, unspecified; G43.909 Migraine, unspecified, not intractable, without status migrainosus; N18.9 Chronic kidney disease, unspecified; Z79.899 Other long term (current) drug therapy; Z88.2 Allergy status to sulfonamides; Z88.5 Allergy status to narcotic agent; Z88.6 Allergy status to analgesic agent; Z88.3 Allergy status to other anti-infective agents; Z88.8 Allergy status to other drugs, medicaments and biological substances
CPT/HCPCS: 45378; J2250; J2704; J3010; J7121